=== PATIENT | female | born 1955 | race American Indian/Alaskan Native ===

== ENCOUNTER 2019-10-23 12:39 | Emergency (ER) | payer MEDICARE, OTHER ==
--- NOTE | 2019-10-23 13:18 | Event Note ---
ED Screening Note ED Screening Note: palpitations left sided chest pain that began a month ago states it feels like a squeezing/pressure no n/v/d no fever no leg swelling no SOB PMHx DM, CVA, HTN no allergies to meds never had a stress test before non smoker This initial assessment/diagnostic orders/clinical plan/treatment(s) is/are mejias bject to change based on patients health status, clinical progression and re- assessment by fellow clinical providers in the ED. Further treatment and workup at subsequent clinical providers discretion. Patient/guardian urged not to elope from the ED as their condition may be serious if not clinically assessed and managed. Initial orders include: CP protocol
--- NOTE | 2019-10-23 13:57 | XRay Report ---
CHEST 2 VIEWS INDICATION: CP. COMPARISON: None FINDINGS: Support devices: None. Heart: Within normal limits. Lungs/pleura: No acute air space or interstitial disease. No pneumothorax. Additional findings: None. IMPRESSION: 1. No acute findings. Signer Name: Kenney Fleming MD Signed: 10/23/2019 1:52 PM Workstation Name: [id number]
[2019-10-23 14:04] LABS: Basophils # (Auto) 0.1 K/mm3 (0.0-0.1); Basophils % (Auto) 1.1 % (0.0-1.8); Eosinophils # (Auto) 0.1 K/mm3 (0.0-0.4); Eosinophils % (Auto) 2.3 % (0.0-4.3); Hematocrit 36.2 % (30.3-42.9); Hemoglobin 12.5 gm/dl (10.1-14.3); Lymphocytes # (Auto) 2.5 K/mm3 (1.2-5.4); Lymphocytes % (Auto) 39.6 % (13.4-35.0); Mean Corpuscular HGB Conc 35 % (30-34); Mean Corpuscular Volume 88 fl (79-97); Monocytes # (Auto) 0.6 K/mm3 (0.0-0.8); Monocytes % (Auto) 8.7 % (0.0-7.3); Platelet Count 244 K/mm3 (140-440); Red Blood Count 4.11 M/mm3 (3.65-5.03); Red Cell Distribution Width 13.7 % (13.2-15.2)
[2019-10-23 14:13] LABS: INR 0.94 (0.87-1.13)
[2019-10-23 14:14] LABS: Partial Thromboplastin Time 25.8 Sec. (24.2-36.6)
[2019-10-23 14:42] LABS: Alanine Aminotransferase 12 units/L (7-56); Albumin 4.4 g/dL (3.9-5); BUN/Creatinine Ratio 33; Blood Urea Nitrogen 20 mg/dL (7-17); Calcium 9.7 mg/dL (8.4-10.2); Hemolysis Index 19
--- NOTE | 2019-10-23 21:13 | Emergency Department Report ---
ED Chest Pain HPI - General Chief Complaint: Chest Pain Stated Complaint: CHEST PAIN Time Seen by Provider: 10/23/19 13:17 Source: patient Mode of arrival: Ambulatory Limitations: No Limitations - History of Present Illness Initial Comments: 64-year-old -[place] female presents to the emergency department with complaint of intermittent left-sided chest pains and palpitations that have been going on for the past 3 months. She says that they occur once or twice a day and last for about 1 to 2 minutes. She has not taken anything for her symptoms prior to presentation today. She has a past medical history of [id number] diabetes, previous CVA without residual deficits, and hypertension. She denies any tobacco or illicit drug use. She does not have a primary care physician. No recent travel or sick contacts at home. - Related Data Allergies Allergy/AdvReac Type Severity Reaction Status Date / Time No Known Allergies Allergy Unverified 03/17/16 08:47 Heart Score - HEART Score History: Slightly suspicious EKG: Normal Age: 45-65 Risk factors: 1-2 risk factors Troponin: < normal limit HEART Score: 2 - Critical Actions Critical Actions: 0-3 pts:0.9-1.7%risk of adverse cardiac event.Candidate for discharge ED Review of Systems ROS: Stated complaint: CHEST PAIN Other details as noted in HPI Comment: All other systems reviewed and negative Constitutional: denies: chills, fever Eyes: denies: eye pain, vision change ENT: denies: ear pain, throat pain Respiratory: denies: cough, shortness of breath Cardiovascular: chest pain, palpitations. denies: edema Gastrointestinal: denies: abdominal pain, vomiting Genitourinary: denies: dysuria, discharge Musculoskeletal: denies: back pain, arthralgia Skin: denies: rash, lesions Neurological: denies: headache, weakness ED Past Medical Hx - Past Medical History Previous Medical History?: Yes Hx Diabetes: Yes Additional medical history: Hyperthyroid - Social History Smoking Status: Never Smoker Substance Use Type: None ED Physical Exam - General Limitations: No Limitations - Other Other exam information: GENERAL: The patient is well-developed well-nourished. HENT: Normocephalic. Atraumatic. Patient has moist mucous membranes. EYES: Extraocular motions are intact. NECK: Supple. Trachea is midline. CHEST/LUNGS: Clear to auscultation. There is no respiratory distress noted. HEART/CARDIOVASCULAR: Regular. There is no tachycardia. There is no murmur. ABDOMEN: Abdomen is soft, nontender. Patient has normal bowel sounds. There is no abdominal distention. SKIN: Skin is warm and dry. NEURO: The patient is awake, alert, and oriented. The patient is cooperative. The patient has no focal neurologic deficits. Normal speech. MUSCULOSKELETAL: There is no tenderness or deformity. There is no limitation range of motion. There is no evidence of acute injury. ED Course Vital Signs 10/23/19 10/23/19 10/23/19 13:21 17:44 20:06 Temperature 97.9 F Pulse Rate 87 100 H 79 Respiratory 20 16 14 Rate Blood Pressure 153/66 Blood Pressure 140/94 [Right] O2 Sat by Pulse 99 99 98 Oximetry 10/23/19 10/23/19 10/23/19 20:16 20:30 20:46 Temperature Pulse Rate 79 82 93 H Respiratory 11 L 15 19 Rate Blood Pressure 148/67 148/67 139/45 Blood Pressure [Right] O2 Sat by Pulse 99 100 98 Oximetry 10/23/19 10/23/19 10/23/19 21:00 21:16 21:30 Temperature Pulse Rate 80 80 79 Respiratory 15 13 17 Rate Blood Pressure 139/45 138/42 147/52 Blood Pressure [Right] O2 Sat by Pulse 100 98 99 Oximetry 10/23/19 10/23/19 10/23/19 21:46 22:08 22:16 Temperature Pulse Rate 81 77 87 Respiratory 18 18 18 Rate Blood Pressure 138/42 138/42 138/42 Blood Pressure [Right] O2 Sat by Pulse 98 98 Oximetry 10/23/19 10/24/19 10/24/19 22:30 00:00 00:16 Temperature Pulse Rate 80 78 83 Respiratory 16 19 17 Rate Blood Pressure 138/42 138/42 147/52 Blood Pressure [Right] O2 Sat by Pulse 99 100 Oximetry SHERYL score - Sheryl Score Age > 65: (0) No Aspirin use within the Past 7 Days: (0) No 3 or more CAD Risk Factors: (0) No 2 or more Angina events in past 24 hrs: (1) Yes Known CAD with more than 50% Stenosis: (0) No Elevated Cardiac Markers: (0) No ST Deviation Greater than 0.5mm: (0) No SHERYL Score: 1 ED Medical Decision Making - Lab Data Result diagrams: 10/23/19 13:37 10/23/19 13:37 - EKG Data -: EKG Interpreted by Me EKG shows normal: sinus rhythm, axis, intervals, QRS complexes (Q waves to the anterior leads), ST-T waves Rate: normal - EKG Data When compared to previous EKG there are: previous EKG unavailable Interpretation: other (Sinus rhythm, normal axis, normal intervals, Q waves to the anterior leads) - Radiology Data Radiology results: report reviewed, image reviewed interpreted by me: Chest x-ray does not show any acute process. There are no pleural effusions, obvious pneumonia and there is no pneumothorax. CT angiography of the chest with 2-D reconstructions INDICATION: Chest pain and elevated d-dimer Thin section axial images were obtained as well as 2-D reformatted MIP images in all 3 planes FINDINGS: There is no hilar or mediastinal adenopathy. No pleural or pericardial effusion. Lung windows show no nodules, masses or infiltrates. There is no thoracic aortic aneurysm or dissection present. Routine axial images as well as 2-D reconstructions through the pulmonary arteries show no evidence of emboli. There are multiple thyroid nodules with thyroid enlargement and calcification. IMPRESSION: Negative chest CTA - Medical Decision Making This patient presents to the emergency department with complaint of some intermittent chest pains and palpitations over the past 3 months. However at the time of my examination the patient says she is asymptomatic. EKG does not show any signs of ST elevation LA or significant dysrhythmia. Chest x-ray does not show any acute process. Labs have been unremarkable including negative troponins x2 but she did have a slightly elevated and equivocal d-dimer level. For this reason a CT angiography of the chest was completed that did not show any pulmonary embolism, dissection or any other acute process. The patient was reevaluated multiple times over multiple hours and there has been no return of her chest pain. She has a low SHERYL and heart score. For these reasons, the patient appears safe for discharge home at this time. However her contact information has been sent over to [facility] and someone from their office should be contacting her shortly for close outpatient follow-up. In the meantime the patient has been instructed to return to the emergency department with any return or worsening of her symptoms, or with any acute distress. - Differential Diagnosis LA, PE, costochondritis, GERD, pneumonia Critical Care Time: No Critical care attestation.: If time is entered above; I have spent that time in minutes in the direct care of this critically ill patient, excluding procedure time. ED Disposition Clinical Impression: Intermittent chest pain, Palpitations Disposition: - TO HOME OR SELFCARE Is pt being admited?: No Condition: Stable Instructions: Chest Pain (ED), Palpitations (ED) Additional Instructions: Please follow-up with your primary care physician in the next few days. I am sending your contact information over to [facility] and someone from their office should be contacting you shortly for close outpatient follow- up. Return to the emergency department with any worsening of your symptoms or any acute distress. Referrals: SHORTY JUSTICE MD [Primary Care Provider] - 2-3 Days [facility] [Provider Group] - 2-3 Days Time of Disposition: 00:29
[2019-10-24 00:18] VITALS: BP 147/52
--- NOTE | 2019-10-24 00:21 | Cat Scan Report ---
CT angiography of the chest with 2-D reconstructions INDICATION: Chest pain and elevated d-dimer Thin section axial images were obtained as well as 2-D reformatted MIP images in all 3 planes FINDINGS: There is no hilar or mediastinal adenopathy. No pleural or pericardial effusion. Lung windo ws show no nodules, masses or infiltrates. There is no thoracic aortic aneurysm or dissection present . Routine axial images as well as 2-D reconstructions through the pulmonary arteries show no evidence of emboli. There are multiple thyroid nodules with thyroid enlargement and calcification. IMPRESSION: Negative chest CTA Automated exposure control was utilized to diminish radiation dose. Signer Name: Sekou Squires MD Signed: 10/24/2019 12:16 AM Workstation Name: [id number]
== END 2019-10-24 00:40 | disposition home or self-care (01) ==
LOC: ED 12:39
DX: R07.89 Other chest pain (principal); R00.2 Palpitations; E11.9 Type 2 diabetes mellitus without complications; E03.9 Hypothyroidism, unspecified; I10 Essential (primary) hypertension; Z86.73 Personal history of transient ischemic attack (TIA), and cerebral infarction without residual deficits
CPT/HCPCS: 36415; 71046; 71275; 80053; 83735; 84443; 84484; 85025; 85379; 85610; 85730; 93005; 93010; 99285; Q9967